=== PATIENT | female | born 1950 | race Caucasian/White ===

== ENCOUNTER 2024-04-22 04:28 | Emergency (ER) | payer OTHER ==
[2024-04-22] MEDS ORDERED: ALBUTEROL 2.5 MG/3 ML NEB SOL ONE (04:43)
[2024-04-22] MEDS ORDERED: IPRATROPIUM BROM 0.5MG/2.5ML ONE (04:44)
[2024-04-22 05:01] LABS: MCH 31.6 pg (27.0-35.0); Nucleated Red Blood Cells % 0.1 % (0-0); Red Cell Distribution Width 13.7 % (12.1-15.2)
[2024-04-22 05:13] LABS: Absolute Eosinophils 0.1 K/uL (0-0.5); Absolute Monocytes 0.4 K/uL (0.1-1.3); Absolute Neutrophil 6.3 K/uL (1.8-8.0); Basophils % 0.5 % (0-1.3); Eosinophils % 1.5 % (0-4.4); Hematocrit 44.3 % (36.0-45.0); Hemoglobin 14.6 g/dL (12.0-15.0); Lymphocytes % 22.8 % (15.3-44.8); MCV 95.7 fL (80-100); MPV 10.3 fL (7.6-11.3); Monocytes % 4.3 % (3.3-12.3); Neutrophils % 70.9 % (41.7-73.7); Platelets 159 thou/uL (152-406); RBC Red Blood Cell Count 4.63 M/uL (3.86-4.86)
[2024-04-22 05:38] LABS: ALT/SGPT < 14 U/L (13-56); AST/SGOT 12 U/L (15-37); Albumin 2.8 g/dL (3.4-5.0); Albumin/Globulin Ratio 0.8 (1.1-1.8); Alkaline Phosphatase 71 U/L (45-117); Anion Gap 7.8 mEq/L (5.0-15.0); BUN Blood Urea Nitrogen 21 mg/dL (7-18); Bicarbonate 33 mEq/L (21-32); Bilirubin Direct < 0.2 mg/dL (0-0.2); Bilirubin Indirect, Calculated 0.5 mg/dL (0.2-0.8); Bilirubin Total 0.7 mg/dL (0.2-1.0); Globulin 3.6 g/dL (2.3-3.5); Glomerular Filtration Rate 98 ml/min (=/>90); Glucose Level 100 mg/dL (74-106); Magnesium 1.9 mg/dL (1.6-2.4); NT PRO-BNP 362 pg/mL (<125); Potassium 4.8 mEq/L (3.5-5.1); Protein, Total 6.4 g/dL (6.4-8.2); Sodium Level 138 mEq/L (136-145)
--- NOTE | 2024-04-22 06:20 | RAD REPORT ---
EXAM DESCRIPTION: Chest Single View CLINICAL HISTORY: COUGH COMPARISON: None TECHNIQUE: Single AP view of the chest. FINDINGS: Lung volumes adequate. Cardiac silhouette is mildly enlarged. No pneumothorax. No large pleural effusion. No focal consolidation. No acute bony finding. IMPRESSION: 1. No focal consolidation. 2. Mildly enlarged cardiac silhouette. Electronically signed by: Rolando Bansal MD 04/22/2024 06:06 AM [facility] Z9 Due to temporary technical issues with the PACS/[employer] reporting system, reports are being scarlett d by the in-house radiologist without review as a courtesy to ensure prompt reporting the interpreting radiologist is fully responsible for the content of the report. Transcribed Date/Time: 04/22/2024 6:20 AM
--- NOTE | 2024-04-22 06:30 | ER ---
Nurse's Notes [facility] Name: Dixie De La Paz Age: 74 yrs Sex: Female : 1950 Arrival Date: 04/22/2024 Time: 04:28 Bed 19 Private MD: Diagnosis: Acute bronchitis, unspecified Presentation: 04/22 04:31 Chief complaint: EMS states: cough that has been ongoing for several weeks. Patient was cp4 previously diagnosed with bronchitis. Coronavirus screen: Client denies travel out of the [place] in the last 14 days. At this time, the client does not indicate any symptoms associated with coronavirus-19. Ebola Screen: Patient negative for fever greater than or equal to 101.5 degrees Fahrenheit, and additional compatible Ebola Virus Disease symptoms Patient denies exposure to infectious person. Patient denies travel to an Ebola-affected area in the 21 days before illness onset. No symptoms or risks identified at this time. Initial Sepsis Screen: Does the patient meet any 2 criteria? No. Patient's initial sepsis screen is negative. Does the patient have a suspected source of infection? No. Patient's initial sepsis screen is negative. Risk Assessment: Do you want to hurt yourself or someone else? Patient reports no desire to harm self or others. Onset of symptoms is unknown. 04:31 Method Of Arrival: EMS: [facility] 04:31 Acuity: GEM 3 cp4 Triage Assessment: 04:33 General: Appears in no apparent distress. uncomfortable, Behavior is calm, cooperative, cp4 appropriate for age. Pain: Denies pain. EENT: No deficits noted. Neuro: Level of Consciousness is awake, alert, obeys commands, Oriented to person, place, time, situation. Cardiovascular: Patient's skin is warm and dry. Respiratory: Reports cough that is productive, Airway is patent Respiratory effort is even, unlabored. 04:37 GI: No signs and/or symptoms were reported involving the gastrointestinal system. : cp4 No signs and/or symptoms were reported regarding the genitourinary system. Derm: No signs and/or symptoms reported regarding the dermatologic system. Musculoskeletal: No signs and/or symptoms reported regarding the musculoskeletal system. Historical: - Allergies: 04:33 Clindamycin; cp4 - Immunization history:: Adult Immunizations up to date. - Infectious Disease History:: Denies. - Social history:: Smoking status: Patient denies any tobacco usage or history of. - Family history:: not pertinent. Screenin:[facility] ED Fall Risk Assessment (Adult) History of falling in the last 3 months, cp4 including since admission No falls in past 3 months (0 pts) Confusion or Disorientation No (0 pts) Intoxicated or Sedated No (0 pts) Impaired Gait No (0 pts) Mobility Assist Device Used No (0 pt) Altered Elimination No (0 pt) Score/Fall Risk Level 0 - 2 = Low Risk Oriented to surroundings, Maintained a safe environment, Assessed \T\ reinforced patient's understanding of fall precautions, Hourly rounding (assess needs \T\ fall precautionary measures) done. Abuse screen: Denies threats or abuse. Nutritional screening: No deficits noted. Tuberculosis screening: No symptoms or risk factors identified. Assessment: 04:37 Reassessment: No changes from previously documented assessment. cp4 04:39 Reassessment: Patient on 4L NC at nursing facility. cp4 05:30 Reassessment: Patient appears in no apparent distress at this time. Patient and/or cp4 family updated on plan of care and expected duration. Pain level reassessed. Patient is alert, oriented x 3, equal unlabored respirations, skin warm/dry/pink. 06:19 Reassessment: Patient appears in no apparent distress at this time. Patient and/or cp4 family updated on plan of care and expected duration. Pain level reassessed. Patient is alert, oriented x 3, equal unlabored respirations, skin warm/dry/pink. 06:37 Reassessment: Report given to Martinez russo [place]. States he would call for transport cp4 back to facility. 06:45 Reassessment: ETA 30 minutes to 1 hour. cp4 07:00 General: Appears in no apparent distress. comfortable. ap3 07:36 Reassessment: Patient and/or family updated on plan of care and expected duration. Pain ap3 level reassessed. Patient is alert, oriented x 3, equal unlabored respirations, skin warm/dry/pink. Vital Signs: 04:31 BP 107 / 81; Pulse 63; Resp 18; Temp 98.4; Pulse Ox 86% on R/A; cp4 05:29 BP 105 / 77; Pulse 63; Resp 18; Pulse Ox 96% on 4 lpm NC; cp4 06:17 BP 100 / 43; Pulse 58; Resp 18; Pulse Ox 96% on 4 lpm NC; cp4 07:36 BP 106 / 68; Pulse 63; Pulse Ox 97% on 4 lpm NC; ap3 ED Course: 04:30 Patient arrived in ED. rv1 04:31 Palak Stokes is Primary Nurse. cp4 04:33 Tate Romero MD is Attending Physician. rt 04:33 Triage completed. cp4 04:37 Arm band placed on right wrist. Patient placed in an exam room, on a stretcher. cp4 04:37 Placed in gown. Bed in low position. Call light in reach. Side rails up X2. cp4 04:37 No provider procedures requiring assistance completed. Initial lab(s) drawn, by ED cp4 staff, sent to lab. Inserted saline lock: 22 gauge in right forearm, using aseptic technique. Blood collected. Flushed with 10 mL NS. 05:38 XRAY Chest (1 view) In Process Unspecified. EDMS 06:46 Provided Education on: bronchitis. cp4 06:56 intact, bleeding controlled, No redness/swelling at site. Pressure dressing applied. cp4 Administered Medications: 04:49 Drug: DuoNeb Nebulize (3:1) (2.5 mg - 0.5 mg) 3 ml Nebulizer once Route: Nebulizer; cp4 05:08 Follow up: Response: No adverse reaction cp4 06:45 Drug: predniSONE PO 40 mg PO once Route: PO; cp4 06:45 Follow up: Response: No adverse reaction cp4 Medication: 04:37 VIS not applicable for this client. cp4 Outcome: 06:29 Discharge ordered by . rt 06:45 Discharged to snf. Report called to Martinez davalos 06:45 Condition: stable 06:45 Discharge instructions given to patient, EMS, Instructed on discharge instructions, follow up and referral plans. medication usage, Demonstrated understanding of instructions, follow-up care, medications, Prescriptions given X 3, 07:37 Patient left the ED. ap3 Signatures: Dispatcher [employer] EDMS Abiola Partida RN RN ap3 Tate Romero MD MD rt Leah Fletcher rv1 Palak Stokes cp4
--- NOTE | 2024-04-22 06:30 | EDPHYS ---
Physician Documentation [facility] Name: Dixie De La Paz Age: 74 yrs Sex: Female : 1950 Arrival Date: 04/22/2024 Time: 04:28 Bed 19 Private MD: ED Physician Tate Romero HPI: 04/22 05:41 This 74 yrs old Female presents to ER via EMS with complaints of Cough. rt 05:41 Patient presents to the ED with 5 weeks of a cough. Patient reports that shortness of rt breath is chronic for her. She is not short of breath on her chronic O2. She did complete a course of antibiotics to no relief. Denies orthopnea, PND. Denies other acute complaints at this time, symptoms are moderate in severity, no other aggravating or alleviating factors.. Historical: - Allergies: 04:33 Clindamycin; cp4 - Immunization history:: Adult Immunizations up to date. - Infectious Disease History:: Denies. - Social history:: Smoking status: Patient denies any tobacco usage or history of. - Family history:: not pertinent. ROS: 05:41 Constitutional: Negative for fever, chills, and weight loss, Cardiovascular: Negative rt for chest pain, palpitations, and edema, Abdomen/GI: Negative for abdominal pain, nausea, vomiting, diarrhea, and constipation, MS/Extremity: Negative for injury and deformity, Skin: Negative for injury, rash, and discoloration, Neuro: Negative for headache, weakness, numbness, tingling, and seizure, 05:41 Respiratory: Positive for cough, Negative for shortness of breath, Exam: 05:41 Constitutional: This is a well developed, well nourished patient who is awake, alert, rt and in no acute distress. Head/Face: Normocephalic, atraumatic. Chest/axilla: Normal chest wall appearance and motion. Nontender with no deformity. No lesions are appreciated. Cardiovascular: Regular rate and rhythm with a normal S1 and S2. No gallops, murmurs, or rubs. Normal PMI, no JVD. No pulse deficits. Abdomen/GI: Soft, non-tender, with normal bowel sounds. No distension or tympany. No guarding or rebound. No evidence of tenderness throughout. Skin: Warm, dry with normal turgor. Normal color with no rashes, no lesions, and no evidence of cellulitis. MS/ Extremity: Pulses equal, no cyanosis. Neurovascular intact. Full, normal range of motion. Neuro: Awake and alert, GCS 15, oriented to person, place, time, and situation. Cranial nerves II-XII grossly intact. Motor strength 5/5 in all extremities. Sensory grossly intact. Cerebellar exam normal. Normal gait. 05:41 ECG was reviewed by the Attending Physician. 05:41 Respiratory: Coarse breath sounds diffusely, no respiratory distress, Vital Signs: 04:31 BP 107 / 81; Pulse 63; Resp 18; Temp 98.4; Pulse Ox 86% on R/A; cp4 05:29 BP 105 / 77; Pulse 63; Resp 18; Pulse Ox 96% on 4 lpm NC; cp4 06:17 BP 100 / 43; Pulse 58; Resp 18; Pulse Ox 96% on 4 lpm NC; cp4 07:36 BP 106 / 68; Pulse 63; Pulse Ox 97% on 4 lpm NC; ap3 MDM: 04:34 Medical Screening Exam initiated rt 07:07 Differential Diagnosis: Other Bronchitis, pneumonia. Data reviewed: vital signs, nurses rt notes, lab test result(s), EKG, radiologic studies. Consideration of Admission/Observation Escalation of care including admission/observation considered. Normal oxygenation, symptoms improving with treatment in the ED, no acute findings on labs, EKG, chest x-ray, patient not likely to benefit from admission.. I considered the following discharge prescriptions or medication management in the emergency department Medications were administered in the Emergency Department. See MAR. Independent interpretation of the following test(s) in the Emergency Department X-Ray: My interpretation is No pneumonia seen on my interpretation of x-ray images. Care significantly affected by the following chronic conditions: Atrial fibrillation. Counseling: I had a detailed discussion with the patient and/or guardian regarding the historical points, exam findings, and any diagnostic results supporting the discharge/admit diagnosis, lab results, radiology results, the need for outpatient follow up, to return to the emergency department if symptoms worsen or persist or if there are any questions or concerns that arise at home. Response to treatment: the patient's symptoms have markedly improved after treatment. 04/22 04:33 Order name: Basic Metabolic Panel; Complete Time: 05:39 rt 04/22 04:33 Order name: CBC with Diff; Complete Time: 05:39 rt 04/22 04:33 Order name: LFT's; Complete Time: 05:39 rt 04/22 04:33 Order name: Magnesium; Complete Time: 05:39 rt 04/22 04:33 Order name: NT PRO-BNP; Complete Time: 05:39 rt 04/22 04:33 Order name: Troponin HS; Complete Time: 05:39 rt 04/22 04:33 Order name: XRAY Chest (1 view) rt 04/22 04:33 Order name: EKG; Complete Time: 04:34 rt 04/22 04:33 Order name: Cardiac monitoring; Complete Time: 04:39 rt 04/22 04:33 Order name: EKG - Nurse/Tech; Complete Time: 04:39 rt 04/22 04:33 Order name: IV Saline Lock; Complete Time: 04:39 rt 04/22 04:33 Order name: Labs collected and sent; Complete Time: 04:39 rt 04/22 04:33 Order name: O2 Per Protocol; Complete Time: 04:39 rt 04/22 04:33 Order name: O2 Sat Monitoring; Complete Time: 04:39 rt EC:41 Rate is 61 beats/min. Rhythm is irregularly irregular, A fib with No ectopy. QRS [place] rt is Normal. QRS interval is normal. QT interval is normal. No Q waves. T waves are Normal. No ST changes noted. Interpreted by me. Administered Medications: 04:49 Drug: DuoNeb Nebulize (3:1) (2.5 mg - 0.5 mg) 3 ml Nebulizer once Route: Nebulizer; cp4 05:08 Follow up: Response: No adverse reaction cp4 06:45 Drug: predniSONE PO 40 mg PO once Route: PO; cp4 06:45 Follow up: Response: No adverse reaction cp4 Disposition Summary: 04/22/24 06:29 Discharge Ordered Notes: Location: Home rt Problem: new rt Symptoms: have improved rt Condition: Stable rt Diagnosis - Acute bronchitis, unspecified rt Followup: rt - With: Private Physician - When: 2 - 3 days - Reason: Discharge Instructions: - Discharge Summary Sheet rt - Acute Bronchitis, Adult rt Forms: - SBAR form ap3 - Medication Reconciliation Form rt - Antibiotic Education rt - Prescription Opioid Use rt - Patient Portal Instructions rt - Leadership Thank You Letter rt Prescriptions: - albuterol sulfate 2.5 mg /3 mL (0.083 %) Inhalation Solution for Nebulization - nebulize 3 milliliter INHALATION route every 2 to 4 hours as needed for rt shortness of breath or wheezing; 90 milliliter; Refills: 0, Product Selection Permitted - Tessalon Perles 100 mg Oral Capsule - take 1 capsule ORAL route every 8 hours As needed; 15 capsule; Refills: 0, rt Product Selection Permitted - Prednisone 20 mg Oral tablet - take 2 tablets ORAL route once daily for 4 days; 8 tablet; Refills: 0, Product rt Selection Permitted Signatures: Dispatcher [employer] Tate Cornejo MD MD rt Potter, Christina cp4
[2024-04-22] MEDS ORDERED: predniSONE 20 MG TAB ONE (06:41)
[2024-04-22 07:44] VITALS: TEMP 98.4
[2024-04-22 07:47] VITALS: BP 106/68; O2SAT 97
--- NOTE | 2024-04-29 11:10 | EKG ---
Test Date: 2024-04-22 Test Time: 04:42:47 Junk Removal Specialist: AF MEASUREMENT RESULTS: Intervals: Rate: 61 VT: QRSD: 84 QT: 372 QTc: 374 [place]: P: VT: QRS: -19 T: 3 INTERPRETIVE STATEMENTS: Atrial fibrillation Abnormal ECG No previous ECG available for comparison Electronically Signed On 04-29-24 11:00:34 SR. CONSULTANT by Steve Ford
== END 2024-04-22 07:37 | disposition home or self-care (01) ==
LOC: ER 04:28
DX: J20.9 Acute bronchitis, unspecified (principal); Z88.3 Allergy status to other anti-infective agents
CPT/HCPCS: 93005; 85025; 80048; 36415; 83735; 80076; 84484; 83880; 71045; 99284; J7512; J7613; J7644